=== PATIENT | male | born 1970 | race African-American/Black ===

== ENCOUNTER 2024-03-11 15:16 | Emergency (ER) | payer SELFPAY ==
[~2024-03-11] VITALS: Ht 185.4 cm; Wt 74.0 kg
[2024-03-11 15:29] VITALS: O2SAT 99
[2024-03-11] MEDS: KETOROLAC 30MG/ML VIAL IM ONE (17:27)
[2024-03-11] MEDS: LORAZEPAM 1MG TABLET PO ONE (17:57)
[2024-03-11] MEDS ORDERED: IBUP-2029 MT (18:35)
[2024-03-11] MEDS ORDERED: CYCL10TA21 MT (18:35)
[2024-03-11] MEDS: OXYCODONE HCL/ACETAMINOPHEN 5/325MG TABLET PO ONE (18:42)
[2024-03-11 18:44] VITALS: BP 135/66; PULSE 88; RESP 20; TEMP 98.2
== END 2024-03-11 18:55 | disposition home or self-care (01) ==
LOC: ER 15:16
DX: M54.9 Dorsalgia, unspecified (principal); R51.9 Headache, unspecified
CPT/HCPCS: 99283; 96372; J1885